=== PATIENT | female | born 1965 | race Two or more races ===

== ENCOUNTER 2020-05-25 10:45 | Inpatient (IN) | payer OTHER ==
[~2020-05-25] VITALS: Ht 157.5 cm; Wt 63.5 kg
[2020-05-25] MEDS ORDERED: CLARITIN10 M1 PO (14:21)
[2020-05-25] MEDS ORDERED: SINGULAIR10 MG PO (14:21)
[2020-05-25] MEDS ORDERED: OMEGA-31000 MG PO (14:21)
[2020-05-25] MEDS ORDERED: CENTRUM SILVER1 EAC3 PO (14:21)
[2020-05-25] MEDS ORDERED: FIBER500 MG PO (14:22)
[2020-05-25] MEDS ORDERED: MIRALAX17 GM PO (14:22)
== END 2020-06-04 17:00 | disposition home or self-care (01) | DRG 331 ==
LOC: SURH 06-01 10:00 → O/R 06-01 11:22 → SURG 06-01 11:22
PROVIDERS: ADMIT Colon & Rectal Surgery; ATTEND Colon & Rectal Surgery
PROC: 0DBP4ZZ Excision of Rectum, Percutaneous Endoscopic Approach (ICD-10-PCS; 2020-06-01)
PROC: 0DJD8ZZ Inspection of Lower Intestinal Tract, Via Natural or Artificial Opening Endoscopic (ICD-10-PCS; 2020-06-01)
PROC: 0DBN4ZZ Excision of Sigmoid Colon, Percutaneous Endoscopic Approach (ICD-10-PCS; principal; 2020-06-01 10:00)
DX: K57.32 Diverticulitis of large intestine without perforation or abscess without bleeding (principal); H66.92 Otitis media, unspecified, left ear; H60.92 Unspecified otitis externa, left ear

== ENCOUNTER 2021-07-01 08:00 | Day surgery (SDC) | payer OTHER ==
[~2021-07-01 08:00] MED LIST: CENTRUM SILVER1 EAC3 PO; CLARITIN10 M1 PO; FIBER500 MG PO; MIRALAX17 GM PO; OMEGA-31000 MG PO; SINGULAIR10 MG PO
== END 2021-07-01 12:45 | disposition home or self-care (01) ==
LOC: AMB-ENDOS 08:00
PROVIDERS: ATTEND Colon & Rectal Surgery
DX: K63.5 Polyp of colon (principal); K64.1 Second degree hemorrhoids; Z20.822 Contact with and (suspected) exposure to COVID-19